=== PATIENT | female | born 2000 | race Caucasian/White ===

== ENCOUNTER 2020-01-25 03:48 | Inpatient (IN) ==
[2020-01-25] MEDS ORDERED: Metoclopramide 10 MG/2 ML VIAL IVP PRN (04:02)
[2020-01-25] MEDS ORDERED: Naloxone 0.4 MG/ML INJ IVP PRN (04:02)
[2020-01-25] MEDS ORDERED: Famotidine 20 MG/2 ML VIAL IVP PRN (04:02)
[2020-01-25] MEDS ORDERED: Ondansetron 4 MG/2 ML VIAL IVP PRN (04:02)
[2020-01-25] MEDS ORDERED: Lidocaine 1% 20 ML MDV INFILT PRN (04:02)
[2020-01-25] MEDS ORDERED: *HR* FentaNYL (PF) 100 MCG/2 ML VIAL IVP PRN (04:02)
[2020-01-25] MEDS ORDERED: Penicillin G Potassium 5,000,000 UNIT in 0.9 % Sodium Chloride Mini Bag 100 ML IVPB ONE (04:30)
[2020-01-25] MEDS: Ringers Solution, Lactated 1,000 ML IVC SCH ×2 (04:54→10:17)
[2020-01-25] MEDS ORDERED: Oxytocin 20 units/ LR 1000 mL 20 UNIT/1,000 ML BAG IVC SCH ×2 (05:00→17:41)
[2020-01-25 05:53] LABS: Basophils % 0.2 %; Eosinophils # 0.1 K/mcL (0.0-0.6); Eosinophils % 0.6 %; Hematocrit 36.2 % (35.3-44.9); Hemoglobin 11.9 g/dL (11.5-15.4); Immature Granulocytes % 0.5 % (0-4); Lymphocytes # 1.7 K/mcL (0.6-4.6); Lymphocytes % 15.3 %; Mean Corpuscular HGB Conc 32.9 g/dL (31.6-35.5); Mean Corpuscular Hemoglobin 27.1 pg (28.0-33.3); Mean Corpuscular Volume 82.5 fL (83.0-100.0); Mean Platelet Volume 12.3 fL (9.4-12.4); Monocytes % 8.6 %; Neutrophils # 8.3 K/mcL (1.6-8.9); Platelet Count 201 K/mcL (140-400); Red Blood Count 4.39 M/mcL (3.82-4.97); Red Cell Distribution Width 14.6 % (11.5-14.5); Segmented Neutrophils % 74.8 %; White Blood Count 11.1 K/mcL (4.3-11.1)
[2020-01-25 08:14] LABS: Amphetamine Screen,Urine Negative ng/mL (Cutoff=1000); Barbiturate Screen,Urine Negative ng/mL (Cutoff=200); Benzodiazepines Screen,Urine Negative ng/mL (Cutoff=200); Cannabinoid Screen,Urine Negative ng/mL (Cutoff = 50); Cocaine Screen,Urine Negative ng/mL (Cutoff= 300); Opiate Screen,Urine Negative ng/mL (Cutoff=300); Phencyclidine Screen,Urine Negative ng/mL (Cutoff=25)
[2020-01-25] MEDS ORDERED: EPHEDrine 50 MG/ML VIAL IVP PRN (08:50)
[2020-01-25] MEDS ORDERED: Epidural Premix (fent/bupiv) 110 ML EP SCH (09:00)
[2020-01-25] MEDS: Penicillin G Potassium 2,500,000 UNIT in 0.9 % Sodium Chloride 100 ML IVPB SCH ×2 (09:05→13:07)
[2020-01-25] MEDS ORDERED: Lanolin 7 G OINT...G. TP PRN (17:41)
[2020-01-25] MEDS ORDERED: Acetaminophen 325 MG TABLET PO PRN (17:41)
[2020-01-25] MEDS ORDERED: Ibuprofen 600 MG TABLET PO PRN (17:41)
[2020-01-25] MEDS ORDERED: Benzocaine/Menthol 56 GM AEROSOL SPRAY TP PRN (17:41)
[2020-01-25] MEDS ORDERED: *HR* HYDROcodone/Acet 5/325 mg TABLET PO PRN (17:41)
[2020-01-26 05:16] LABS: Basophils % 0.2 %; Eosinophils # 0.1 K/mcL (0.0-0.6); Eosinophils % 0.6 %; Hematocrit 30.2 % (35.3-44.9); Immature Granulocytes % 0.4 % (0-4); Lymphocytes # 1.8 K/mcL (0.6-4.6); Lymphocytes % 16.6 %; Mean Corpuscular HGB Conc 32.8 g/dL (31.6-35.5); Mean Corpuscular Hemoglobin 27.4 pg (28.0-33.3); Mean Corpuscular Volume 83.7 fL (83.0-100.0); Mean Platelet Volume 12.2 fL (9.4-12.4); Monocytes # 1.3 K/mcL (0.0-1.3); Monocytes % 11.7 %; Neutrophils # 7.5 K/mcL (1.6-8.9); Platelet Count 161 K/mcL (140-400); Red Blood Count 3.61 M/mcL (3.82-4.97); Red Cell Distribution Width 14.6 % (11.5-14.5); Segmented Neutrophils % 70.5 %; White Blood Count 10.7 K/mcL (4.3-11.1)
[2020-01-26 05:18] LABS: Hemoglobin 9.9 g/dL (11.5-15.4)
[2020-01-26 07:32] VITALS: BP 112/82
[2020-01-26] MEDS ORDERED: Prenatal Vit/FA 1 EACH TABLET PO SCH (09:00)
== END 2020-01-26 16:47 | disposition home or self-care (01) | DRG 805 ==
LOC: 1NENULAB 03:48 → 1NENUOBS 17:32
PROVIDERS: ADMIT Student in an Organized Health Care Education/Training Program; ATTEND Obstetrics & Gynecology